=== PATIENT | male | born 1970 | race Two or more races ===

== ENCOUNTER 2018-02-27 10:14 | Emergency (ER) | payer OTHER ==
[2018-02-27] MEDS ORDERED: SKIN ADHESIVE (DERMABOND) 1 EACH TP ONE (10:52)
--- NOTE | 2018-02-27 10:59 | EDPHY ---
HPI/HX/ROS/PE/MDM Narrative: CHIEF COMPLAINT: Splinter stuck in left elbow HPI: The patient is a 47-year-old male with history of several prior orthopedic surgeries. While at work, he was stuck with a shard of would which imbedded a splinter into his left elbow. He was able to pull out approximately half of the splinter but can still feel as substantial splinter underneath the skin which she cannot remove himself. He denies any significant pain at elbow. He denies fever. He denies other injury. REVIEW OF SYSTEMS: Aside from elements discussed in the HPI, a comprehensive 10-point review of systems was reviewed and is negative. PMH: Includes prior orthopedic procedures, no history of diabetes. 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 PHYSICAL EXAM: General:Patient is alert, in no acute distress. Extremities: A small puncture wound/abrasion is present over the lateral volar elbow in the soft tissue. There is no swelling of the elbow joint nor pain with range of motion. A linear foreign body measuring approximately 2 cm is palpable underneath the skin. Nothing is protruding from wound. Neuro: Oriented x3. Normal motor function. Normal sensory function. ED Course: Procedure: Foreign body removal I injected approximately 2 cc of lidocaine with epinephrine to the area of the wound. A splinter forceps was used to explore the wound and no splinter was initially found. Using ultrasound, I was able to locate the foreign body underneath the skin somewhat proximal to the wound. I made a small 0.25 cm laceration with an 11 blade at the midpoint of this foreign body and was able to use forceps to express the splinter out of the wound. No significant bleeding and no complications. A small amount of Dermabond was used to close the laceration that I created. MDM: I will place the patient on a short course of Keflex given the fact foreign body was present in his skin and he underwent manipulation, combined with the fact the has numerous orthopedic prostheses. General Time Seen by Provider: 02/27/18 10:20 Initial Vital Signs: Initial Vital Signs Temperature (C) 36.6 C 02/27/18 10:16 Heart Rate 73 02/27/18 10:16 Respiratory Rate 16 02/27/18 10:16 Blood Pressure 143/98 H 02/27/18 10:16 O2 Sat (%) 95 02/27/18 10:16 O2 Delivery Mode Room Air Allergies/Adverse Reactions: No Known Allergies Allergy (Verified 02/27/18 10:22) Home Medications: Medication Instructions Recorded Cephalexin [Keflex] 500 mg PO TID #15 cap 02/27/18 Departure - Departure Disposition: Home, Routine, Self-Care Clinical Impression: Foreign body/splinter, skin Condition: Good Instructions: Soft Tissue Foreign Body (ED) Additional Instructions: Return to the Emergency Department for fever, redness, discharge from wound, increasing pain or other worsening of condition. OK to resume work. Referrals: NONE *PRIMARY CARE P,. [Primary Care Provider] - As per Instructions Prescriptions: Cephalexin [Keflex] 500 mg PO TID #15 cap
[2018-02-27 11:15] VITALS: BP 138/94
== END 2018-02-27 11:16 | disposition home or self-care (01) ==
LOC: CED 10:14
PROC: 0JC Subcutaneous Tissue and Fascia, Extirpation (ICD-10-PCS; principal; 2018-02-27)
DX: S50.352A Superficial foreign body of left elbow, initial encounter (principal); W45.8XXA Other foreign body or object entering through skin, initial encounter; Y92.69 Other specified industrial and construction area as the place of occurrence of the external cause; Y99.0 Civilian activity done for income or pay; Y93.89 Activity, other specified